=== PATIENT | female | born 1960 | race Caucasian/White ===

== ENCOUNTER 2017-07-29 13:36 | Inpatient (IN) | payer BC ==
[~2017-07-29] VITALS: Ht 167.6 cm; Wt 94.7 kg
[2017-07-29] MEDS ORDERED: TOPI100T8 PO (13:48)
[2017-07-29] MEDS ORDERED: CARB200T13 PO (13:48)
[2017-07-29] MEDS ORDERED: LOSA1TAB19 PO (13:48)
[2017-07-29] MEDS ORDERED: TRAZ50TA18 PO (13:48)
[2017-07-29] MEDS ORDERED: PARO20TA4 PO (13:48)
[2017-07-29] MEDS ORDERED: LORazepam 2 MG/ML, 1ML IVPush PRN ×2 (14:00→16:30)
[2017-07-29] MEDS ORDERED: PLEASE ENTER ALLERGIES MC SCH (14:00)
[2017-07-29 14:07] LABS: BASOPHILS # (AUTO) 0.02 x10^3/uL (0-0.1); BASOPHILS % (AUTO) 0 % (0-1); EOSINOPHILS # (AUTO) 0.47 x10^3/uL (0-0.4); EOSINOPHILS % (AUTO) 10 % (1-7); LYMPHOCYTES # (AUTO) 1.45 x10^3/uL (1-3.4); LYMPHOCYTES % (AUTO) 29 % (22-44); MD NO; MEAN CORPUSCULAR HEMOGLOBIN 30.1 pg (27.0-34.8); MEAN CORPUSCULAR HGB CONC 33.3 g/dL (32.4-35.8); MEAN CORPUSCULAR VOLUME 90.3 fL (80-100); MEAN PLATELET VOLUME 9.4 fL (7.4-10.4); MONOCYTES # (AUTO) 0.29 x10^3/uL (0.2-0.8); MONOCYTES % (AUTO) 6 % (2-9); NEUTROPHILS # (AUTO) 2.74 x10^3/uL (1.8-6.8); NEUTROPHILS % (AUTO) 55 % (42-75); PLATELET COUNT 207 x10^3/uL (130-400); RED BLOOD COUNT 4.22 x10^6/uL (3.82-5.3); RED CELL DISTRIBUTION WIDTH 13.6 % (9.6-15.2)
[2017-07-29 14:18] LABS: ALBUMIN 3.6 g/dL (3.4-5.0); ANION GAP 11 mmol/L (5-15); CALCIUM 8.8 mg/dL (8.5-10.1); CHLORIDE 100 mmol/L (98-107)
[2017-07-29 14:24] LABS: ALANINE AMINOTRANSFERASE 21 U/L (12-78); ALKALINE PHOSPHATASE 140 U/L (45-117); BILIRUBIN,TOTAL 0.3 mg/dL (0.2-1.0); CREATININE 0.95 mg/dL (0.55-1.02)
[2017-07-29] MEDS ORDERED: POTASSIUM CHLORIDE 40 MEQ in SODIUM CHLORIDE 0.9% 500 ML IV ONE (15:00)
[2017-07-29 15:41] LABS: AMPHETAMINE SCREEN, URINE Negative (Negative); BARBITURATE SCREEN, URINE Negative (Negative); BENZODIAZEPINE SCREEN, URINE Negative (Negative); CANNABINOID SCREEN, URINE Negative (Negative); COCAINE SCREEN, URINE Negative (Negative); METHADONE SCREEN, URINE Negative (Negative); OPIATE SCREEN, URINE Negative (Negative)
[2017-07-29] MEDS ORDERED: BISACODYL 10 MG SUPP PR PRN (16:00)
[2017-07-29] MEDS ORDERED: hydrALAzine 20 MG/ML, 1ML IVPush PRN (16:00)
[2017-07-29] MEDS ORDERED: DOCUSATE 100 MG CAPSULE PO PRN (16:00)
[2017-07-29] MEDS ORDERED: POLYETHYLENE GLYCOL 17 GM PACKET PO PRN (16:00)
[2017-07-29] MEDS ORDERED: ONDANSETRON 2MG/ML, 2ML IVPush PRN (16:00)
[2017-07-29] MEDS ORDERED: GADOBUTROL 10 MMOL/10 ML PFS ONE (16:47)
[2017-07-29 17:48] VITALS: BP 138/73
[2017-07-29] MEDS: POTASSIUM CHLORIDE 20 MEQ TAB.ER.PRT PO SCH (18:22)
[2017-07-29] MEDS: ACETAMINOPHEN 325 MG TABLET PO PRN (18:22)
[2017-07-29 19:30] VITALS: BP 139/78
[2017-07-29] MEDS: TOPIRAMATE 100 MG TABLET PO SCH (20:42)
[2017-07-29] MEDS: TRAZODONE 50MG TABLET PO SCH (20:42)
[2017-07-29] MEDS: SODIUM CHLORIDE FLUSH 10ML SYR IVF SCH (20:42)
[2017-07-29] MEDS: CARBAMAZEPINE XR 200 MG TABLET PO SCH (20:42)
[2017-07-30 02:43] VITALS: BP 157/71
[2017-07-30 05:23] LABS: BASOPHILS # (AUTO) 0.03 x10^3/uL (0-0.1); BASOPHILS % (AUTO) 1 % (0-1); EOSINOPHILS # (AUTO) 0.53 x10^3/uL (0-0.4); EOSINOPHILS % (AUTO) 11 % (1-7); LYMPHOCYTES # (AUTO) 1.48 x10^3/uL (1-3.4); LYMPHOCYTES % (AUTO) 30 % (22-44); MD NO; MEAN CORPUSCULAR HEMOGLOBIN 30.8 pg (27.0-34.8); MEAN CORPUSCULAR HGB CONC 33.8 g/dL (32.4-35.8); MEAN CORPUSCULAR VOLUME 91.1 fL (80-100); MEAN PLATELET VOLUME 8.8 fL (7.4-10.4); MONOCYTES # (AUTO) 0.39 x10^3/uL (0.2-0.8); MONOCYTES % (AUTO) 8 % (2-9); NEUTROPHILS # (AUTO) 2.51 x10^3/uL (1.8-6.8); NEUTROPHILS % (AUTO) 51 % (42-75); PLATELET COUNT 185 x10^3/uL (130-400); RED BLOOD COUNT 3.97 x10^6/uL (3.82-5.3); RED CELL DISTRIBUTION WIDTH 14.3 % (9.6-15.2)
[2017-07-30 05:24] LABS: ANION GAP 6 mmol/L (5-15); CALCIUM 9.1 mg/dL (8.5-10.1); CHLORIDE 108 mmol/L (98-107)
[2017-07-30 05:36] LABS: CREATININE 0.86 mg/dL (0.55-1.02)
[2017-07-30 06:50] VITALS: BP 144/79
[2017-07-30] MEDS ORDERED: LOSARTAN 50MG TABLET PO SCH (09:00)
[2017-07-30] MEDS: LOSARTAN 50MG TABLET PO SCH (09:00)
[2017-07-30] MEDS: SODIUM CHLORIDE FLUSH 10ML SYR IVF SCH ×2 (09:00→20:52)
[2017-07-30] MEDS: POTASSIUM CHLORIDE 20 MEQ TAB.ER.PRT PO SCH ×2 (09:20→17:45)
[2017-07-30] MEDS: PAROXETINE 20 MG TABLET PO SCH (09:21)
[2017-07-30] MEDS: HYDROCHLOROTHIAZIDE 12.5 MG CAPSULE PO SCH (09:21)
[2017-07-30] MEDS: CARBAMAZEPINE XR 200 MG TABLET PO SCH ×2 (09:21→20:52)
[2017-07-30 13:02] VITALS: BP 148/82
[2017-07-30] MEDS ORDERED: KETOROLAC 30 MG/1 ML IVPush ONE (16:00)
[2017-07-30] MEDS: ACETAMINOPHEN 325 MG TABLET PO PRN (17:45)
[2017-07-30 19:38] VITALS: BP 131/80
[2017-07-30] MEDS: TRAZODONE 50MG TABLET PO SCH (20:53)
[2017-07-30] MEDS: TOPIRAMATE 100 MG TABLET PO SCH (20:53)
[2017-07-31 02:00] VITALS: BP 129/80
[2017-07-31 05:46] LABS: ANION GAP 5 mmol/L (5-15); CALCIUM 8.8 mg/dL (8.5-10.1); CHLORIDE 110 mmol/L (98-107); CREATININE 0.79 mg/dL (0.55-1.02)
[2017-07-31 05:47] LABS: BASOPHILS # (AUTO) 0.02 x10^3/uL (0-0.1); BASOPHILS % (AUTO) 1 % (0-1); EOSINOPHILS # (AUTO) 0.53 x10^3/uL (0-0.4); EOSINOPHILS % (AUTO) 11 % (1-7); LYMPHOCYTES # (AUTO) 1.82 x10^3/uL (1-3.4); LYMPHOCYTES % (AUTO) 36 % (22-44); MD NO; MEAN CORPUSCULAR HEMOGLOBIN 30.8 pg (27.0-34.8); MEAN CORPUSCULAR HGB CONC 33.9 g/dL (32.4-35.8); MEAN CORPUSCULAR VOLUME 91.1 fL (80-100); MEAN PLATELET VOLUME 9.4 fL (7.4-10.4); MONOCYTES # (AUTO) 0.46 x10^3/uL (0.2-0.8); MONOCYTES % (AUTO) 9 % (2-9); NEUTROPHILS # (AUTO) 2.22 x10^3/uL (1.8-6.8); NEUTROPHILS % (AUTO) 44 % (42-75); PLATELET COUNT 190 x10^3/uL (130-400); RED BLOOD COUNT 4.05 x10^6/uL (3.82-5.3); RED CELL DISTRIBUTION WIDTH 14.2 % (9.6-15.2)
[2017-07-31 08:16] VITALS: BP 167/73
[2017-07-31] MEDS ORDERED: LOSARTAN 50MG TABLET PO SCH (09:00)
[2017-07-31] MEDS: SODIUM CHLORIDE FLUSH 10ML SYR IVF SCH ×2 (09:03→19:43)
[2017-07-31] MEDS: ACETAMINOPHEN 325 MG TABLET PO PRN (09:03)
[2017-07-31] MEDS: LOSARTAN 50MG TABLET PO SCH (09:03)
[2017-07-31] MEDS: POTASSIUM CHLORIDE 20 MEQ TAB.ER.PRT PO SCH (09:03)
[2017-07-31] MEDS: HYDROCHLOROTHIAZIDE 12.5 MG CAPSULE PO SCH (09:04)
[2017-07-31] MEDS: CARBAMAZEPINE XR 200 MG TABLET PO SCH ×2 (09:04→19:43)
[2017-07-31] MEDS: PAROXETINE 20 MG TABLET PO SCH (09:04)
[2017-07-31 13:05] VITALS: BP 141/84
[2017-07-31 13:50] VITALS: BP 133/74
[2017-07-31] MEDS: TRAZODONE 50MG TABLET PO SCH (19:43)
[2017-07-31 19:48] VITALS: BP 112/66
[2017-07-31] MEDS ORDERED: TOPIRAMATE 100 MG TABLET PO SCH (21:00)
[2017-08-01 03:50] VITALS: BP 124/66
[2017-08-01 08:48] VITALS: BP 140/78
[2017-08-01] MEDS: SODIUM CHLORIDE FLUSH 10ML SYR IVF SCH (09:30)
[2017-08-01] MEDS: PAROXETINE 20 MG TABLET PO SCH (09:30)
[2017-08-01] MEDS: CARBAMAZEPINE XR 200 MG TABLET PO SCH (09:30)
[2017-08-01] MEDS: HYDROCHLOROTHIAZIDE 12.5 MG CAPSULE PO SCH (09:30)
[2017-08-01] MEDS: ACETAMINOPHEN 325 MG TABLET PO PRN (09:30)
[2017-08-01] MEDS: LOSARTAN 50MG TABLET PO SCH (09:31)
[2017-08-01] MEDS ORDERED: TOPI100T24 PO (15:11)
[2017-08-01 16:25] VITALS: BP 133/82
== END 2017-08-01 17:36 | disposition home or self-care (01) | DRG 101 ==
LOC: ED 15:58 → 3NE 15:59 → ED 16:15
PROVIDERS: ADMIT Hospitalist; ATTEND Hospitalist
DX: G40.201 Localization-related (focal) (partial) symptomatic epilepsy and epileptic syndromes with complex partial seizures, not intractable, with status epilepticus (principal); E87.1 Hypo-osmolality and hyponatremia; M32.9 Systemic lupus erythematosus, unspecified; E87.6 Hypokalemia; I10 Essential (primary) hypertension; R73.9 Hyperglycemia, unspecified
CPT/HCPCS: 36415; 70450; 70553; 80048; 80053; 80156; 80307; 83735; 84100; 84443; 85025; 93005; 95816; 96365; A9585; J1885; J3480; J7040